=== PATIENT | female | born 1930 | race Caucasian/White ===

== ENCOUNTER → 2018-01-14 | Outpatient (CLI) | payer MEDICARE | END | disposition home or self-care (01) | LOC: CVU 14:14 | PROVIDERS: ATTEND Nurse Practitioner Family | DX: I08.0 Rheumatic disorders of both mitral and aortic valves (principal); I27.20 Pulmonary hypertension, unspecified; E11.9 Type 2 diabetes mellitus without complications | CPT/HCPCS: 93306 ==

== ENCOUNTER 2018-03-17 11:06 | Observation (INO) | payer MEDICARE ==
[~2018-03-17] VITALS: Ht 147.3 cm; Wt 54.2 kg
[2018-03-17] MEDS ORDERED: SODIUM CHLORIDE 0.9% 1,000 ML IV ONE (11:42)
[2018-03-17 11:58] VITALS: BP 136/65
[2018-03-17] MEDS ORDERED: PLEASE ENTER HEIGHT AND WEIGHT MC SCH (12:00)
[2018-03-17] MEDS ORDERED: DIPHENHYDRAMINE 50 MG/ML, 1ML IVPush ONE (12:00)
[2018-03-17] MEDS ORDERED: DIPHENHYDRAMINE 50 MG/ML, 1ML ONE (12:11)
[2018-03-17] MEDS ORDERED: SENN-87 PO (12:24)
[2018-03-17] MEDS ORDERED: POTA20TA89 PO (12:24)
[2018-03-17] MEDS ORDERED: LEVO50TA5 PO (12:24)
[2018-03-17] MEDS ORDERED: VIT1CAPS9 PO (12:24)
[2018-03-17] MEDS ORDERED: OMEP10CA4 PO (12:24)
[2018-03-17] MEDS ORDERED: IPRA3AMP30 INH (12:24)
[2018-03-17] MEDS ORDERED: CALC1CAP8 PO (12:24)
[2018-03-17] MEDS ORDERED: ONDA4TAB10 PO (12:24)
[2018-03-17] MEDS ORDERED: CHOL2000 PO (12:24)
[2018-03-17] MEDS ORDERED: HYDR30SU4 PR (12:24)
[2018-03-17] MEDS ORDERED: FURO-93 PO (12:24)
[2018-03-17] MEDS ORDERED: CRAN500T2 PO (12:24)
[2018-03-17] MEDS ORDERED: APIX2.5T PO (12:24)
[2018-03-17] MEDS ORDERED: CALC200T3 PO (12:24)
[2018-03-17] MEDS ORDERED: ACET325C PO (12:24)
[2018-03-17 12:26] LABS: BASOPHILS # (AUTO) 0.04 x10^3/uL (0-0.1); BASOPHILS % (AUTO) 1 % (0-1); EOSINOPHILS # (AUTO) 0.28 x10^3/uL (0-0.4); EOSINOPHILS % (AUTO) 4 % (1-7); LYMPHOCYTES # (AUTO) 2.68 x10^3/uL (1-3.4); LYMPHOCYTES % (AUTO) 38 % (22-44); MD NO; MEAN CORPUSCULAR HEMOGLOBIN 28.8 pg (27.0-34.8); MEAN CORPUSCULAR HGB CONC 33.4 g/dL (32.4-35.8); MEAN CORPUSCULAR VOLUME 86.1 fL (80-100); MEAN PLATELET VOLUME 6.7 fL (7.4-10.4); MONOCYTES # (AUTO) 0.73 x10^3/uL (0.2-0.8); MONOCYTES % (AUTO) 10 % (2-9); NEUTROPHILS # (AUTO) 3.36 x10^3/uL (1.8-6.8); NEUTROPHILS % (AUTO) 47 % (42-75); PLATELET COUNT 350 x10^3/uL (130-400); RED BLOOD COUNT 3.88 x10^6/uL (3.82-5.3); RED CELL DISTRIBUTION WIDTH 18.2 % (9.6-15.2)
[2018-03-17] MEDS ORDERED: CYAN500T42 PO (12:31)
[2018-03-17] MEDS ORDERED: FAMO20TA7 PO (12:33)
[2018-03-17 12:38] LABS: ANION GAP 9 mmol/L (5-15); CHLORIDE 104 mmol/L (98-107); CREATININE 1.18 mg/dL (0.55-1.02)
[2018-03-17] MEDS ORDERED: FENTANYL PF 100 MCG/2ML ONE (14:08)
[2018-03-17] MEDS ORDERED: HEPARIN 1,000 UNITS/ML, 10ML ONE (14:09)
[2018-03-17] MEDS ORDERED: VERAPAMIL 2.5 MG/ML, 2ML ONE (14:09)
[2018-03-17] MEDS ORDERED: LIDOCAINE-MPF 2%, 2ML ONE (14:09)
[2018-03-17] MEDS ORDERED: MIDAZOLAM 1 MG/ML, 5ML ONE (14:09)
[2018-03-17] MEDS ORDERED: LIDOCAINE 1%, 50ML ONE (14:56)
[2018-03-17] MEDS ORDERED: ACETAMINOPHEN 325 MG TABLET PO PRN (16:00)
[2018-03-17] MEDS ORDERED: SODIUM CHLORIDE 0.9% 500 ML IV SCH (16:00)
[2018-03-17] MEDS ORDERED: BISACODYL 5 MG EC TABLET PO PRN (16:00)
[2018-03-17] MEDS ORDERED: ONDANSETRON 2MG/ML, 2ML IVPush PRN (16:00)
[2018-03-17 20:00] VITALS: BP 118/72
[2018-03-18 02:09] VITALS: BP 109/52
[2018-03-18] MEDS ORDERED: LEVOTHYROXINE 50 MCG TABLET PO SCH (06:00)
[2018-03-18 06:56] VITALS: BP 107/63
[2018-03-18] MEDS ORDERED: OMEPRAZOLE 20 MG CAPSULE.DR PO SCH (07:30)
[2018-03-18] MEDS ORDERED: POTASSIUM CHLORIDE 20 MEQ TAB.ER.PRT PO SCH (08:00)
[2018-03-18] MEDS ORDERED: APIXABAN 2.5 MG TABLET PO SCH (09:00)
[2018-03-18] MEDS ORDERED: FUROSEMIDE 20 MG TABLET PO SCH (09:00)
== END 2018-03-18 11:57 ==
LOC: CACL 11:06 → ORIP 15:32 → 5SO 16:04
PROVIDERS: ADMIT Internal Medicine Cardiovascular Disease; ATTEND Internal Medicine Cardiovascular Disease
DX: I73.9 Peripheral vascular disease, unspecified (principal); R94.31 Abnormal electrocardiogram [ECG] [EKG]; I70.208 Unspecified atherosclerosis of native arteries of extremities, other extremity
CPT/HCPCS: 36415; 80048; 85025; 93454; 99156; 99157; C1769; C1894; G0378; J1200; J2250; J3010; J3490; J7040; Q9967; J1644

== ENCOUNTER → 2018-04-26 | Outpatient (CLI) | payer MEDICARE ==
[~2018-04-26] MED LIST: ACET325C PO; APIX2.5T PO; CALC1CAP8 PO; CALC200T3 PO; CHOL2000 PO; CRAN500T2 PO; CYAN500T42 PO; FAMO20TA7 PO; FURO-93 PO; HYDR30SU4 PR; IPRA3AMP30 INH; LEVO50TA5 PO; OMEP10CA4 PO; ONDA4TAB10 PO; POTA20TA89 PO; SENN-87 PO; VIT1CAPS9 PO
[2018-04-26 08:48] LABS: ALANINE AMINOTRANSFERASE 16 U/L (12-78); ALBUMIN 3.5 g/dL (3.4-5.0); ANION GAP 8 mmol/L (5-15); CALCIUM 8.9 mg/dL (8.5-10.1); CHLORIDE 102 mmol/L (98-107); CREATININE 1.21 mg/dL (0.55-1.02)
[2018-04-26 08:50] LABS: ALKALINE PHOSPHATASE 85 U/L (45-117); BILIRUBIN,TOTAL 0.6 mg/dL (0.2-1.0); TOTAL PROTEIN 7.1 g/dL (6.4-8.2)
== END | disposition home or self-care (01) ==
LOC: LAB 08:21
PROVIDERS: ATTEND Internal Medicine Cardiovascular Disease
DX: N18.2 Chronic kidney disease, stage 2 (mild) (principal); R06.02 Shortness of breath
CPT/HCPCS: 36415; 80053

== ENCOUNTER 2018-07-07 07:54 | Outpatient (CLI) | payer MEDICARE ==
[~2018-07-07 07:54] MED LIST changes: -ACET325C PO; +ACET325C3 PO; -SENN-87 PO; +SENN-88 PO
[2018-07-07 08:19] LABS: MEAN CORPUSCULAR HEMOGLOBIN 28.7 pg (27.0-34.8); MEAN CORPUSCULAR HGB CONC 32.6 g/dL (32.4-35.8); MEAN PLATELET VOLUME 7.2 fL (7.4-10.4); PLATELET COUNT 336 x10^3/uL (130-400); RED BLOOD COUNT 4.17 x10^6/uL (3.82-5.3); RED CELL DISTRIBUTION WIDTH 15.3 % (9.6-15.2)
[2018-07-07 08:30] LABS: ALANINE AMINOTRANSFERASE 17 U/L (12-78); ALBUMIN 3.4 g/dL (3.4-5.0); ANION GAP 6 mmol/L (5-15); CALCIUM 8.9 mg/dL (8.5-10.1); CHLORIDE 105 mmol/L (98-107); CHOLESTEROL, TOTAL 175 mg/dL (140-239)
[2018-07-07 08:40] LABS: ALKALINE PHOSPHATASE 125 U/L (45-117); BILIRUBIN,TOTAL 0.7 mg/dL (0.2-1.0); CHOL/HDL RATIO 3.1; HDL CHOL % 33 % (28-40); HDL CHOLESTEROL (DIRECT) 57 mg/dL (40-60); LDL CHOLESTEROL,CALCULATED 95 mg/dL (54-169); LDL/HDL RATIO 1.7 (0.5-3.0); TOTAL PROTEIN 7.7 g/dL (6.4-8.2); TRIGLYCERIDES 113 mg/dL (50-200); VLDL CHOLESTEROL 23 mg/dL (0-25)
== END 2018-07-07 23:59 | disposition home or self-care (01) ==
LOC: LAB 07:54
PROVIDERS: ATTEND Internal Medicine Nephrology
DX: E11.22 Type 2 diabetes mellitus with diabetic chronic kidney disease (principal); N18.3 Chronic kidney disease, stage 3 (moderate); K29.60 Other gastritis without bleeding; E03.4 Atrophy of thyroid (acquired); E78.2 Mixed hyperlipidemia
CPT/HCPCS: 36415; 80053; 80061; 84100; 84156; 84443; 85027

== ENCOUNTER 2018-07-26 15:23 | Inpatient (IN) | payer MEDICARE ==
[~2018-07-26] VITALS: Ht 147.3 cm; Wt 63.5 kg
[2018-07-26] MEDS ORDERED: FAMCICLOVIR 500 MG TABLET PO ONE (16:30)
--- NOTE | 2018-07-26 16:41 | NUR ---
PT BIB DAUGHTER FROM [place] AFTER PT WAS COMPLAINING OF RIGHT RIB PAIN. STATES WAS HUGGED TIGHT LAST NIGHT AND DEVELOPED PAIN TODAY. PT ALSO HAS RASH ON UPPER ANTERIOR OF CHEST AND RIGHT AXIAL. MILD AMOUNT OF DISTRESS AND DISCOMFORT NOTED. BREATHING REGULAR AND UNLABORED. POC DISCUSSED.
[2018-07-26 16:44] LABS: BASOPHILS # (AUTO) 0.05 x10^3/uL (0-0.1); BASOPHILS % (AUTO) 0 % (0-1); EOSINOPHILS # (AUTO) 0.18 x10^3/uL (0-0.4); EOSINOPHILS % (AUTO) 1 % (1-7); LYMPHOCYTES # (AUTO) 2.41 x10^3/uL (1-3.4); LYMPHOCYTES % (AUTO) 16 % (22-44); MD NO; MEAN CORPUSCULAR HEMOGLOBIN 28.2 pg (27.0-34.8); MEAN CORPUSCULAR HGB CONC 32.4 g/dL (32.4-35.8); MEAN CORPUSCULAR VOLUME 86.8 fL (80-100); MEAN PLATELET VOLUME 7.1 fL (7.4-10.4); MONOCYTES # (AUTO) 1.22 x10^3/uL (0.2-0.8); MONOCYTES % (AUTO) 8 % (2-9); NEUTROPHILS # (AUTO) 11.49 x10^3/uL (1.8-6.8); NEUTROPHILS % (AUTO) 75 % (42-75); PLATELET COUNT 548 x10^3/uL (130-400); RED BLOOD COUNT 3.47 x10^6/uL (3.82-5.3); RED CELL DISTRIBUTION WIDTH 14.5 % (9.6-15.2)
[2018-07-26 16:52] LABS: ALBUMIN 2.5 g/dL (3.4-5.0); ANION GAP 8 mmol/L (5-15); CALCIUM 8.7 mg/dL (8.5-10.1); CHLORIDE 101 mmol/L (98-107)
--- NOTE | 2018-07-26 17:24 | NUR ---
PT MEDICATED PER AUG. 5 RIGHTS VERIFIED PRIOR. 3 P'S ADDRESSED.
--- NOTE | 2018-07-26 18:15 | NUR ---
BREAK RN: PT UPRIGHT ON GURNEY AWAKE & COMFORTABLE, RESPONDS TO VERBAL STIMULI, NAD, COMFORT MEASURES PROVIDED, DAUGHTER AT BS, CALL LIGHT WITHIN REACH. ISO PREC IN PLACE.
[2018-07-26] MEDS ORDERED: ASPIRIN 81 MG TABLET EC PO ONE (18:43)
--- NOTE | 2018-07-26 18:45 | NUR ---
REPORT FROM BREAK RN. PT RESTING IN [facility]. CONTACT PRECAUTION IN PLACE. PT ON [employer] REP, CONT. PULSE OX, AND BP. POC UPDATED.
[2018-07-26] MEDS ORDERED: LORazepam 2 MG/ML, 1ML IVPush ONE (19:30)
--- NOTE | 2018-07-26 19:30 | NUR ---
HOSPITALIST AT THE BEDSIDE.
[2018-07-26] MEDS ORDERED: ASPIRIN 81 MG TABLET EC ONE (19:35)
[2018-07-26] MEDS ORDERED: LORazepam 2 MG/ML, 1ML ONE (19:36)
--- NOTE | 2018-07-26 19:55 | NUR ---
PT UP TO BC. REPOSTIONED IN [facility]. IV STARTED. PT MEDICATED PER AUG. 5 RIGHTS VERIFIED PRIOR. 3 P'S ADDRESSED.
--- NOTE | 2018-07-26 19:59 | NUR ---
REPORT TO YOUSIF PEREZ.
[2018-07-26] MEDS ORDERED: ENOXAPARIN 40 MG/0.4 ML SQ SCH (20:00)
[2018-07-26] MEDS ORDERED: ONDANSETRON 2MG/ML, 2ML IVPush PRN (20:00)
[2018-07-26] MEDS ORDERED: GABAPENTIN 300 MG CAPSULE PO PRN (20:00)
--- NOTE | 2018-07-26 20:43 | NUR ---
[place]. DECREASED ANXIETY NOTED. POC UPDATED WITH PT AND DAUGHTER.
--- NOTE | 2018-07-26 20:52 | NUR ---
REPORT TO YOUSIF KEE.
[2018-07-26] MEDS: VALACYCLOVIR 500MG TABLET PO SCH (22:18)
[2018-07-26] MEDS: LACTATED RINGERS 1,000 ML IV SCH (22:18)
[2018-07-26] MEDS: APIXABAN 2.5 MG TABLET PO SCH (22:18)
[2018-07-26] MEDS: CEFTRIAXONE PMX 1GM/50ML 50 ML IV SCH (22:38)
[2018-07-27 00:47] LABS: MICROSCOPIC AUTO
[2018-07-27 00:48] LABS: CULTURE INDICATED? YES
[2018-07-27 02:05] VITALS: BP 136/69
[2018-07-27 04:29] LABS: MEAN CORPUSCULAR HEMOGLOBIN 28.5 pg (27.0-34.8); MEAN CORPUSCULAR HGB CONC 33.4 g/dL (32.4-35.8); MEAN CORPUSCULAR VOLUME 85.5 fL (80-100); MEAN PLATELET VOLUME 6.8 fL (7.4-10.4); PLATELET COUNT 510 x10^3/uL (130-400); RED BLOOD COUNT 3.12 x10^6/uL (3.82-5.3); RED CELL DISTRIBUTION WIDTH 14.3 % (9.6-15.2)
[2018-07-27 04:33] LABS: ANION GAP 8 mmol/L (5-15); CALCIUM 8.3 mg/dL (8.5-10.1); CHLORIDE 101 mmol/L (98-107); CREATININE 1.17 mg/dL (0.55-1.02)
[2018-07-27 05:54] LABS: BASOPHILS # (AUTO) 0.03 x10^3/uL (0-0.1); BASOPHILS % (AUTO) 0 % (0-1); EOSINOPHILS # (AUTO) 0.18 x10^3/uL (0-0.4); EOSINOPHILS % (AUTO) 1 % (1-7); LYMPHOCYTES # (AUTO) 1.46 x10^3/uL (1-3.4); LYMPHOCYTES % (AUTO) 11 % (22-44); MD SCAN; MONOCYTES # (AUTO) 1.11 x10^3/uL (0.2-0.8); MONOCYTES % (AUTO) 8 % (2-9); NEUTROPHILS # (AUTO) 10.92 x10^3/uL (1.8-6.8); NEUTROPHILS % (AUTO) 80 % (42-75)
[2018-07-27 07:38] VITALS: BP 141/66
[2018-07-27] MEDS: VALACYCLOVIR 500MG TABLET PO SCH ×2 (08:17→20:44)
[2018-07-27] MEDS: APIXABAN 2.5 MG TABLET PO SCH ×2 (08:17→20:44)
[2018-07-27] MEDS: LEVOTHYROXINE 50 MCG TABLET PO SCH (08:17)
[2018-07-27 13:34] VITALS: BP 134/53
[2018-07-27] MEDS: LACTATED RINGERS 1,000 ML IV SCH (16:37)
[2018-07-27 18:54] VITALS: BP 142/68
[2018-07-27] MEDS: CEFTRIAXONE PMX 1GM/50ML 50 ML IV SCH (20:44)
[2018-07-28 01:10] VITALS: BP 138/63
[2018-07-28 06:15] LABS: BASOPHILS # (AUTO) 0.05 x10^3/uL (0-0.1); BASOPHILS % (AUTO) 0 % (0-1); EOSINOPHILS % (AUTO) 2 % (1-7); LYMPHOCYTES # (AUTO) 1.44 x10^3/uL (1-3.4); LYMPHOCYTES % (AUTO) 11 % (22-44); MD NO; MEAN CORPUSCULAR VOLUME 85.3 fL (80-100); MEAN PLATELET VOLUME 6.6 fL (7.4-10.4); MONOCYTES # (AUTO) 1.22 x10^3/uL (0.2-0.8); MONOCYTES % (AUTO) 9 % (2-9); NEUTROPHILS # (AUTO) 10.73 x10^3/uL (1.8-6.8); NEUTROPHILS % (AUTO) 79 % (42-75); PLATELET COUNT 475 x10^3/uL (130-400); RED BLOOD COUNT 3.04 x10^6/uL (3.82-5.3); RED CELL DISTRIBUTION WIDTH 14.4 % (9.6-15.2)
[2018-07-28 06:17] LABS: ANION GAP 8 mmol/L (5-15); CALCIUM 8.1 mg/dL (8.5-10.1); CHLORIDE 97 mmol/L (98-107); CREATININE 0.97 mg/dL (0.55-1.02)
[2018-07-28 07:51] VITALS: BP 143/71
[2018-07-28] MEDS: VALACYCLOVIR 500MG TABLET PO SCH ×2 (09:00→20:19)
[2018-07-28] MEDS: APIXABAN 2.5 MG TABLET PO SCH (09:06)
[2018-07-28] MEDS: LEVOTHYROXINE 50 MCG TABLET PO SCH (09:06)
[2018-07-28] MEDS ORDERED: CETIRIZINE 10 MG TABLET PO PRN (14:00)
[2018-07-28] MEDS ORDERED: KETOROLAC 30 MG/1 ML IVPush PRN (15:00)
[2018-07-28 19:55] VITALS: BP 171/71
[2018-07-28] MEDS: CEFTRIAXONE PMX 1GM/50ML 50 ML IV SCH (20:18)
[2018-07-28] MEDS: GABAPENTIN 300 MG CAPSULE PO SCH (20:19)
[2018-07-28] MEDS: SODIUM CHLORIDE NASAL SPRAY 45ML BOTTLE NAS SCH (20:22)
[2018-07-29 00:33] VITALS: BP 159/75
[2018-07-29 06:09] LABS: BASOPHILS # (AUTO) 0.02 x10^3/uL (0-0.1); BASOPHILS % (AUTO) 0 % (0-1); EOSINOPHILS % (AUTO) 2 % (1-7); LYMPHOCYTES # (AUTO) 1.17 x10^3/uL (1-3.4); LYMPHOCYTES % (AUTO) 9 % (22-44); MD NO; MEAN CORPUSCULAR HEMOGLOBIN 29.1 pg (27.0-34.8); MEAN CORPUSCULAR VOLUME 85.6 fL (80-100); MEAN PLATELET VOLUME 6.9 fL (7.4-10.4); MONOCYTES # (AUTO) 1.16 x10^3/uL (0.2-0.8); MONOCYTES % (AUTO) 9 % (2-9); NEUTROPHILS # (AUTO) 10.23 x10^3/uL (1.8-6.8); NEUTROPHILS % (AUTO) 79 % (42-75); PLATELET COUNT 507 x10^3/uL (130-400); RED CELL DISTRIBUTION WIDTH 14.4 % (9.6-15.2)
[2018-07-29 06:13] LABS: ANION GAP 8 mmol/L (5-15); CALCIUM 8.4 mg/dL (8.5-10.1); CHLORIDE 95 mmol/L (98-107)
[2018-07-29 06:15] LABS: CREATININE 1.09 mg/dL (0.55-1.02)
[2018-07-29 06:57] VITALS: BP 151/70
[2018-07-29] MEDS ORDERED: ENOXAPARIN 40 MG/0.4 ML SQ SCH (08:00)
[2018-07-29] MEDS: VALACYCLOVIR 500MG TABLET PO SCH ×2 (08:38→20:24)
[2018-07-29] MEDS: GABAPENTIN 300 MG CAPSULE PO SCH ×2 (08:38→20:23)
[2018-07-29] MEDS: ENOXAPARIN 30 MG/0.3 ML SQ SCH (08:39)
[2018-07-29] MEDS: LEVOTHYROXINE 50 MCG TABLET PO SCH (08:39)
[2018-07-29] MEDS: SODIUM CHLORIDE NASAL SPRAY 45ML BOTTLE NAS SCH ×2 (08:39→20:28)
[2018-07-29] MEDS ORDERED: SODIUM CHLORIDE 0.9% 1,000 ML IV SCH (09:00)
[2018-07-29 10:34] LABS: SODIUM,URINE RANDOM 41 mmol/L
[2018-07-29 10:49] LABS: OSMOLALITY,URINE 238 mOsm/kg (500-850)
[2018-07-29 12:24] VITALS: BP 132/65
[2018-07-29] MEDS ORDERED: OMNIPAQUE 350 MG/ML, 75ML BOTTLE ONE (15:00)
[2018-07-29] MEDS ORDERED: PHARMACY MAY ADJ FOR RENAL FX MC PRN (16:00)
[2018-07-29] MEDS: AMOXICILLIN/CLAV 500-125MG TABLET PO SCH (16:55)
[2018-07-29 18:31] VITALS: BP 162/62
[2018-07-30 04:37] VITALS: BP 147/61
[2018-07-30] MEDS: AMOXICILLIN/CLAV 500-125MG TABLET PO SCH ×2 (05:14→14:17)
[2018-07-30 06:09] LABS: ANION GAP 8 mmol/L (5-15); CALCIUM 8.6 mg/dL (8.5-10.1); CHLORIDE 96 mmol/L (98-107)
[2018-07-30 06:10] LABS: BASOPHILS # (AUTO) 0.03 x10^3/uL (0-0.1); BASOPHILS % (AUTO) 0 % (0-1); EOSINOPHILS # (AUTO) 0.34 x10^3/uL (0-0.4); EOSINOPHILS % (AUTO) 2 % (1-7); LYMPHOCYTES # (AUTO) 1.47 x10^3/uL (1-3.4); LYMPHOCYTES % (AUTO) 11 % (22-44); MD NO; MEAN CORPUSCULAR HEMOGLOBIN 28.4 pg (27.0-34.8); MEAN CORPUSCULAR HGB CONC 33.6 g/dL (32.4-35.8); MEAN CORPUSCULAR VOLUME 84.5 fL (80-100); MONOCYTES # (AUTO) 1.28 x10^3/uL (0.2-0.8); MONOCYTES % (AUTO) 9 % (2-9); NEUTROPHILS % (AUTO) 78 % (42-75); PLATELET COUNT 387 x10^3/uL (130-400); RED BLOOD COUNT 2.98 x10^6/uL (3.82-5.3); RED CELL DISTRIBUTION WIDTH 14.4 % (9.6-15.2)
[2018-07-30 06:11] LABS: CREATININE 1.11 mg/dL (0.55-1.02)
[2018-07-30 07:38] LABS: ALANINE AMINOTRANSFERASE 20 U/L (12-78); ALBUMIN 1.7 g/dL (3.4-5.0)
[2018-07-30 07:40] LABS: ALKALINE PHOSPHATASE 96 U/L (45-117); BILIRUBIN,TOTAL 0.2 mg/dL (0.2-1.0); TOTAL PROTEIN 5.5 g/dL (6.4-8.2)
[2018-07-30 07:44] LABS: BILIRUBIN, DIRECT < 0.1 mg/dL (0.1-0.2); BILIRUBIN,INDIRECT 0.1 mg/dL (0.0-2.0)
[2018-07-30 07:45] VITALS: BP 137/68
[2018-07-30] MEDS: LEVOTHYROXINE 50 MCG TABLET PO SCH (08:31)
[2018-07-30] MEDS: VALACYCLOVIR 500MG TABLET PO SCH ×2 (08:31→19:52)
[2018-07-30] MEDS: ENOXAPARIN 30 MG/0.3 ML SQ SCH (08:32)
[2018-07-30] MEDS: SODIUM CHLORIDE NASAL SPRAY 45ML BOTTLE NAS SCH ×2 (08:37→19:53)
[2018-07-30] MEDS: GABAPENTIN 300 MG CAPSULE PO SCH ×2 (08:37→19:52)
[2018-07-30] MEDS ORDERED: SODIUM CHLORIDE 0.9% 1,000 ML IV SCH (09:00)
[2018-07-30] MEDS ORDERED: PHARMACY MAY ADJ FOR RENAL FX MC PRN (13:30)
--- NOTE | 2018-07-30 13:57 | NUR ---
REC: chopped diet with thin liquids; small meals (1/2) portions - all per patient request/preference Addendum: 07/30/18 at 1358 by Lian ASTORGA Amended: Links added.
[2018-07-30 14:37] LABS: SODIUM,URINE RANDOM 28 mmol/L
[2018-07-30 15:11] VITALS: BP 121/65
[2018-07-30 16:29] LABS: OSMOLALITY,URINE 275 mOsm/kg (500-850)
[2018-07-30 18:43] VITALS: BP 158/69
[2018-07-31] MEDS: AMOXICILLIN/CLAV 500-125MG TABLET PO SCH ×2 (02:22→15:20)
[2018-07-31 02:23] VITALS: BP 135/67
[2018-07-31 05:39] LABS: CHLORIDE 96 mmol/L (98-107)
[2018-07-31 05:43] LABS: MEAN CORPUSCULAR HEMOGLOBIN 28.3 pg (27.0-34.8); MEAN CORPUSCULAR HGB CONC 33.2 g/dL (32.4-35.8); MEAN CORPUSCULAR VOLUME 85.3 fL (80-100); MEAN PLATELET VOLUME 6.7 fL (7.4-10.4); PLATELET COUNT 572 x10^3/uL (130-400); RED BLOOD COUNT 3.09 x10^6/uL (3.82-5.3); RED CELL DISTRIBUTION WIDTH 14.4 % (9.6-15.2)
[2018-07-31 05:47] LABS: ALANINE AMINOTRANSFERASE 17 U/L (12-78); ALBUMIN 1.7 g/dL (3.4-5.0); ALKALINE PHOSPHATASE 94 U/L (45-117); ANION GAP 6 mmol/L (5-15); BILIRUBIN,TOTAL 0.6 mg/dL (0.2-1.0); CALCIUM 8.9 mg/dL (8.5-10.1); TOTAL PROTEIN 5.7 g/dL (6.4-8.2)
[2018-07-31 06:30] LABS: BASOPHILS # (AUTO) 0.01 x10^3/uL (0-0.1); BASOPHILS % (AUTO) 0 % (0-1); EOSINOPHILS # (AUTO) 0.19 x10^3/uL (0-0.4); EOSINOPHILS % (AUTO) 1 % (1-7); LYMPHOCYTES # (AUTO) 1.49 x10^3/uL (1-3.4); LYMPHOCYTES % (AUTO) 10 % (22-44); MD SCAN; MONOCYTES # (AUTO) 1.01 x10^3/uL (0.2-0.8); MONOCYTES % (AUTO) 7 % (2-9); NEUTROPHILS # (AUTO) 12.59 x10^3/uL (1.8-6.8); NEUTROPHILS % (AUTO) 82 % (42-75)
[2018-07-31 08:30] VITALS: BP 145/70
[2018-07-31] MEDS: LEVOTHYROXINE 50 MCG TABLET PO SCH (08:53)
[2018-07-31] MEDS: VALACYCLOVIR 500MG TABLET PO SCH ×2 (08:53→22:14)
[2018-07-31] MEDS: GABAPENTIN 300 MG CAPSULE PO SCH ×2 (08:53→22:14)
[2018-07-31] MEDS: SODIUM CHLORIDE NASAL SPRAY 45ML BOTTLE NAS SCH ×2 (08:54→21:00)
[2018-07-31] MEDS: ENOXAPARIN 30 MG/0.3 ML SQ SCH (08:54)
--- NOTE | 2018-07-31 10:28 | NUR ---
REC CHOPPED/THIN; swallow precaution sheet posted at bedside; azalia for joseline/gaitan Addendum: 07/31/18 at [address] Amended: Links added.
[2018-07-31] MEDS ORDERED: FUROSEMIDE 20 MG/2 ML IV ONE (13:30)
[2018-07-31 14:40] VITALS: BP 129/62
[2018-07-31 20:00] VITALS: BP 162/70
[2018-07-31] MEDS: ATORVASTATIN 20 MG TABLET PO SCH (22:14)
[2018-08-01] MEDS: AMOXICILLIN/CLAV 500-125MG TABLET PO SCH ×2 (02:19→13:54)
[2018-08-01 02:34] VITALS: BP 114/79
[2018-08-01 05:53] LABS: CHLORIDE 96 mmol/L (98-107)
[2018-08-01 06:03] LABS: % IRON SATURATION 10 % (20-55); ALBUMIN 1.8 g/dL (3.4-5.0); ANION GAP 8 mmol/L (5-15); CALCIUM 8.8 mg/dL (8.5-10.1); CREATININE 1.11 mg/dL (0.55-1.02); IRON LEVEL 25 mcg/dL (50-170); TOTAL IRON BINDING CAPACITY 247 mcg/dL (250-450)
[2018-08-01 07:37] VITALS: BP 118/58
[2018-08-01 07:46] LABS: MEAN CORPUSCULAR HEMOGLOBIN 27.6 pg (27.0-34.8); MEAN CORPUSCULAR HGB CONC 32.4 g/dL (32.4-35.8); MEAN CORPUSCULAR VOLUME 85.2 fL (80-100); MEAN PLATELET VOLUME 6.3 fL (7.4-10.4); PLATELET COUNT 604 x10^3/uL (130-400); RED BLOOD COUNT 3.27 x10^6/uL (3.82-5.3)
[2018-08-01 08:23] LABS: BASOPHILS # (AUTO) 0.02 x10^3/uL (0-0.1); BASOPHILS % (AUTO) 0 % (0-1); EOSINOPHILS # (AUTO) 0.29 x10^3/uL (0-0.4); EOSINOPHILS % (AUTO) 2 % (1-7); LYMPHOCYTES # (AUTO) 1.66 x10^3/uL (1-3.4); LYMPHOCYTES % (AUTO) 13 % (22-44); MD SCAN; MONOCYTES # (AUTO) 1.11 x10^3/uL (0.2-0.8); MONOCYTES % (AUTO) 9 % (2-9); NEUTROPHILS # (AUTO) 9.37 x10^3/uL (1.8-6.8); NEUTROPHILS % (AUTO) 75 % (42-75)
[2018-08-01] MEDS: GABAPENTIN 300 MG CAPSULE PO SCH ×2 (09:18→19:48)
[2018-08-01] MEDS: SODIUM CHLORIDE NASAL SPRAY 45ML BOTTLE NAS SCH ×2 (09:18→19:48)
[2018-08-01] MEDS: LEVOTHYROXINE 50 MCG TABLET PO SCH (09:18)
[2018-08-01] MEDS: ENOXAPARIN 30 MG/0.3 ML SQ SCH (09:18)
[2018-08-01] MEDS: VALACYCLOVIR 500MG TABLET PO SCH ×2 (09:18→19:48)
[2018-08-01 14:10] VITALS: BP 120/59
[2018-08-01 19:10] VITALS: BP 114/67
[2018-08-01] MEDS: ATORVASTATIN 20 MG TABLET PO SCH (19:48)
[2018-08-02 01:45] VITALS: BP 137/52
[2018-08-02] MEDS: AMOXICILLIN/CLAV 500-125MG TABLET PO SCH ×2 (02:39→13:00)
[2018-08-02 05:19] LABS: ALBUMIN 1.8 g/dL (3.4-5.0); ANION GAP 6 mmol/L (5-15); CALCIUM 8.9 mg/dL (8.5-10.1); CHLORIDE 96 mmol/L (98-107); CREATININE 1.41 mg/dL (0.55-1.02)
[2018-08-02 06:56] VITALS: BP 135/60
[2018-08-02] MEDS: SODIUM CHLORIDE NASAL SPRAY 45ML BOTTLE NAS SCH ×2 (09:44→21:00)
[2018-08-02] MEDS: GABAPENTIN 300 MG CAPSULE PO SCH ×2 (09:44→22:06)
[2018-08-02] MEDS: VALACYCLOVIR 500MG TABLET PO SCH (09:44)
[2018-08-02] MEDS: LEVOTHYROXINE 50 MCG TABLET PO SCH (09:44)
[2018-08-02] MEDS: ENOXAPARIN 30 MG/0.3 ML SQ SCH (09:44)
[2018-08-02 13:49] VITALS: BP 130/67
[2018-08-02 19:51] VITALS: BP 138/65
[2018-08-02] MEDS: ATORVASTATIN 20 MG TABLET PO SCH (22:06)
[2018-08-03] MEDS: AMOXICILLIN/CLAV 500-125MG TABLET PO SCH (03:19)
[2018-08-03 03:42] VITALS: BP 131/64
[2018-08-03 05:36] LABS: ALBUMIN 1.8 g/dL (3.4-5.0); ANION GAP 8 mmol/L (5-15); CALCIUM 8.5 mg/dL (8.5-10.1); CHLORIDE 95 mmol/L (98-107)
[2018-08-03 05:39] LABS: CREATININE 1.35 mg/dL (0.55-1.02)
[2018-08-03 07:21] VITALS: BP 132/65
[2018-08-03] MEDS: GABAPENTIN 300 MG CAPSULE PO SCH (09:19)
[2018-08-03] MEDS: ENOXAPARIN 30 MG/0.3 ML SQ SCH (09:20)
[2018-08-03] MEDS: LEVOTHYROXINE 50 MCG TABLET PO SCH (09:20)
[2018-08-03] MEDS: SODIUM CHLORIDE NASAL SPRAY 45ML BOTTLE NAS SCH (09:20)
[2018-08-03] MEDS ORDERED: GABA300C10 PO (09:36)
[2018-08-03] MEDS ORDERED: ATOR20TA37 PO (09:36)
[2018-08-03 13:25] VITALS: BP 141/74
== END 2018-08-03 13:30 | DRG 871 ==
LOC: ED 18:34 → EDIP 18:39 → OBSVTOIN 18:39 → ED 18:56 → 4NOR 21:29
PROVIDERS: ADMIT Internal Medicine; ATTEND Internal Medicine
DX: A41.9 Sepsis, unspecified organism (principal); E43 Unspecified severe protein-calorie malnutrition; B02.29 Other postherpetic nervous system involvement; E87.1 Hypo-osmolality and hyponatremia; J96.10 Chronic respiratory failure, unspecified whether with hypoxia or hypercapnia; J98.11 Atelectasis; D64.9 Anemia, unspecified; E03.9 Hypothyroidism, unspecified; E11.22 Type 2 diabetes mellitus with diabetic chronic kidney disease; E86.0 Dehydration; E86.1 Hypovolemia; G47.33 Obstructive sleep apnea (adult) (pediatric); H53.2 Diplopia; I12.9 Hypertensive chronic kidney disease with stage 1 through stage 4 chronic kidney disease, or unspecified chronic kidney disease; N18.3 Chronic kidney disease, stage 3 (moderate); Z66 Do not resuscitate; Z96.649 Presence of unspecified artificial hip joint; R91.1 Solitary pulmonary nodule; E04.1 Nontoxic single thyroid nodule; R82.71 Bacteriuria; M17.10 Unilateral primary osteoarthritis, unspecified knee; Z99.81 Dependence on supplemental oxygen; Z78.9 Other specified health status; Z79.01 Long term (current) use of anticoagulants; Z79.899 Other long term (current) drug therapy; Z68.29 Body mass index [BMI] 29.0-29.9, adult
CPT/HCPCS: 36415; 70450; 70551; 71045; 71260; 80048; 80053; 80069; 80076; 81001; 82040; 82728; 83540; 83550; 83605; 83735; 83930; 83935; 84145; 84295; 84300; 84443; 84550; 85025; 85379; 87086; 93005; 99285; G0378; J0696; J1650; Q9967; J1940; J7030; J7120